=== PATIENT | male | born 1975 | race Caucasian/White ===

== ENCOUNTER 2016-10-18 11:04 | Emergency (ER) | payer SELFPAY ==
[2016-10-18 11:56] VITALS: BP 137/86; PULSE 66; RESP 16; TEMP 97.4
--- NOTE | 2016-10-18 12:14 | ED ---
ENT HPI - General Chief complaint: Dental/Oral Stated complaint: tooth pain Time Seen by Provider: 10/18/16 11:57 Source: patient, RN notes reviewed Mode of arrival: ambulatory Limitations: no limitations - History of Present Illness Initial comments: 40-year-old male presents emergency Department chief complaint dental pain. Patient states that this started last night. Patient's been up all night secondary to pain. Patient denies any fever, chills, facial swelling. Patient states she's has multiple missing teeth, poor dentition. Patient states that he was scheduled have dentures though his Medicaid lapsed. Patient states night was money and states he cannot see the dentist. Patient denies any difficulty swallowing, headache or dizziness. Patient offers no other complaints. - Related Data Home Medications Medication Instructions Recorded Confirmed Vitamin B Complex 1 cap PO DAILY 10/18/16 10/18/16 Previous Rx's Medication Instructions Recorded Hydrocodone/Acetaminophen [[place] 1 tab PO Q6HR PRN #20 tab 10/18/16 5-325] Penicillin V Potassium [Pen Vee K] 500 mg PO QID #40 tab 10/18/16 Allergies Allergy/AdvReac Type Severity Reaction Status Date / Time No Known Allergies Allergy Verified 10/18/16 11:54 Review of Systems ROS Statement: Those systems with pertinent positive or pertinent negative responses have been documented in the HPI. ROS Other: All systems not noted in ROS Statement are negative. 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 History of Any Multi-Drug Resistant Organisms: None Reported Additional Past Surgical History / Comment(s): surgery on left testicle- undescended as . Past Anesthesia/Blood Transfusion Reactions: Unable to Obtain Past Psychological History: Anxiety Additional Psychological History / Comment(s): Pt lives alone. He is independent. He drives. Smoking Status: Current every day smoker Past Alcohol Use History: None Reported Additional Past Alcohol Use History / Comment(s): Pt is a recovering alcoholic. He has not drank in 190 days. He started smoking cigarettes at the age of 18 yrs and was a 2 ppd smoker-now down to 3/4-1 ppd. Past Drug Use History: None Reported Additional Drug Use History / Comment(s): Pt states he smokes marijuana on occasion but not daily. - Past Family History Father Family Medical History: Unable to Obtain Additional Family Medical History / Comment(s): Pt states he has not had contact with his father in a long time but thinks he is healthy. Mother Family Medical History: Unable to Obtain Additional Family Medical History / Comment(s): Mother is an alcoholic and pt has not had contact with her since he was 8 yrs old. General Exam Limitations: no limitations General appearance: alert, in no apparent distress Head exam: Present: atraumatic, normocephalic, normal inspection Eye exam: Present: normal appearance, PERRL, EOMI. Absent: scleral icterus, conjunctival injection, periorbital swelling ENT exam: Present: mucous membranes moist, TM's normal bilaterally, normal external ear exam. Absent: normal oropharynx (Edentulous, no definite abscess no swelling there is mild erythema of the right lower gumline.) Neck exam: Present: normal inspection, full ROM. Absent: tenderness, meningismus, lymphadenopathy Respiratory exam: Present: normal lung sounds bilaterally. Absent: respiratory distress, wheezes, rales, rhonchi, stridor Cardiovascular Exam: Present: regular rate, normal rhythm, normal heart sounds. Absent: systolic murmur, diastolic murmur, rubs, gallop, clicks Neurological exam: Present: alert Skin exam: Present: warm, dry, intact, normal color. Absent: rash Course Vital Signs 10/18/16 11:54 Temperature 97.4 F L Pulse Rate 66 Respiratory 16 Rate Blood Pressure 137/86 O2 Sat by Pulse 99 Oximetry Medical Decision Making - Medical Decision Making 4-year-old male. Presented for dental pain. Patient was started on antibiotics , pain medication there is no drainable abscess. There is concerns for dental infection. Patient will be discharged with follow-up. We did discuss return parameters. Disposition Clinical Impression: Dental infection, Dental caries Disposition: HOME SELF-CARE Condition: Stable Instructions: Toothache (ED) Additional Instructions: Please return to the Emergency Department if symptoms worsen or any other concerns. Prescriptions: Hydrocodone/Acetaminophen [[place] 5-325] 1 tab PO Q6HR PRN #20 tab PRN Reason: Pain Penicillin V Potassium [Pen Vee K] 500 mg PO QID #40 tab Time of Disposition: 12:14
== END 2016-10-18 12:24 | disposition home or self-care (01) ==
LOC: EC 11:04
DX: K02.9 Dental caries, unspecified (principal); K04.7 Periapical abscess without sinus; F12.90 Cannabis use, unspecified, uncomplicated; F17.210 Nicotine dependence, cigarettes, uncomplicated
CPT/HCPCS: 99282

== ENCOUNTER 2017-06-26 10:52 | Emergency (ER) | payer OTHER ==
[2017-06-26 11:00] VITALS: BP 153/65; PULSE 80; RESP 18; TEMP 98
--- NOTE | 2017-06-26 11:20 | ED ---
General Adult HPI - General Chief complaint: Extremity Injury, Upper Stated complaint: L arm swelling Time Seen by Provider: 06/26/17 11:01 Source: patient, RN notes reviewed Mode of arrival: ambulatory Limitations: no limitations - History of Present Illness Initial comments: Patient 41-year-old male who presents emergency room today with chief complaint of swelling and pain locally to the left wrist area over the last 3 days. He denies any injury or trauma. States he is right-handed. States he has noticed some redness. She is warm to the touch. States worse with both flexion and extension at the left wrist. He denies any other complaints or symptoms. Patient denies any recent fever, chills, shortness of breath, chest pain, back pain, abdominal pain, nausea or vomiting, numbness or tingling, dysuria or hematuria, constipation or diarrhea, headaches or visual changes, or any other complaints. - Related Data Home Medications Medication Instructions Recorded Confirmed Ibuprofen [Motrin] 800 mg PO Q6HR PRN 06/26/17 06/26/17 Previous Rx's Medication Instructions Recorded Cephalexin [Keflex] 500 mg PO Q12HR 10 Days 06/26/17 Ibuprofen [Motrin] 800 mg PO Q6HR #20 tab 06/26/17 Allergies Allergy/AdvReac Type Severity Reaction Status Date / Time No Known Allergies Allergy Verified 06/26/17 11:10 Review of Systems ROS Statement: Those systems with pertinent positive or pertinent negative responses have been documented in the HPI. ROS Other: All systems not noted in ROS Statement are negative. 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 History of Any Multi-Drug Resistant Organisms: None Reported Additional Past Surgical History / Comment(s): surgery on left testicle- undescended as infant. Past Anesthesia/Blood Transfusion Reactions: Unable to Obtain Past Psychological History: Anxiety Smoking Status: Current every day smoker Past Alcohol Use History: None Reported Past Drug Use History: Marijuana - Past Family History Father Family Medical History: Unable to Obtain Additional Family Medical History / Comment(s): Pt states he has not had contact with his father in a long time but thinks he is healthy. Mother Family Medical History: Unable to Obtain Additional Family Medical History / Comment(s): Mother is an alcoholic and pt has not had contact with her since he was 8 yrs old. General Exam - General Exam Comments Initial Comments: General: The patient is awake and alert, in no distress, and does not appear acutely ill. Neck: The neck is supple, there is no tenderness or JVD. Cardiovascular: There is a regular rate and rhythm. No murmur, rub or gallop is appreciated. Respiratory: Lungs are clear to auscultation, respirations are non-labored, breath sounds are equal. No wheezes, stridor, rales, or rhonchi. Musculoskeletal/skin: Does have some mild swelling to the left wrist area. There is increased redness to the dorsal aspect. There is increased warmth on palpation. Sensations are intact. Cap refill less than 2 seconds. Shows full range of motion. Strength 5/5. Neurological: A&O x 3. CN II-XII intact, There are no obvious motor or sensory deficits. Coordination appears grossly intact. Speech is normal. Psychiatric: Normal mood and affect. Limitations: no limitations Course Vital Signs 06/26/17 10:58 Temperature 98.0 F Pulse Rate 80 Respiratory 18 Rate Blood Pressure 153/65 O2 Sat by Pulse 98 Oximetry Medical Decision Making - Medical Decision Making Ultrasound negative for any evidence of DVT. Patient will be treated for cellulitis sure on antibiotics here in the emergency room and advised close follow up Dr. fontenot if symptoms increase worsen. States understanding and is in agreement with plan. Disposition Clinical Impression: Cellulitis Disposition: HOME SELF-CARE Condition: Good Instructions: Cellulitis (ED) Additional Instructions: Please use antibiotic as prescribed follow-up family doctor over the next 2 days. Please return here to the emergency room symptoms increase worsen or for any other concerns. Prescriptions: Cephalexin [Keflex] 500 mg PO Q12HR 10 Days Ibuprofen [Motrin] 800 mg PO Q6HR #20 tab Referrals: None,Stated [Primary Care Provider] - 1-2 days Lata Topete MD [STAFF PHYSICIAN] - 1-2 days Time of Disposition: 12:28
--- NOTE | 2017-06-26 12:23 | US ---
EXAMINATION TYPE: US venous doppler duplex UE LT DATE OF EXAM: 06/26/2017 COMPARISON: NONE CLINICAL HISTORY: Pain. SIDE PERFORMED: LEFT Grayscale, color doppler, spectral doppler imaging performed of the deep veins of the left upper extr emity. There is normal flow, compressability and vascular waveforms. Left Arm: Negative for DVT IMPRESSION: No evidence for DVT at this time.
== END 2017-06-26 12:52 | disposition home or self-care (01) ==
LOC: EC 10:52
DX: L03.114 Cellulitis of left upper limb (principal); F17.200 Nicotine dependence, unspecified, uncomplicated
CPT/HCPCS: 99283

== ENCOUNTER 2017-08-25 13:51 | Emergency (ER) | payer SELFPAY ==
[2017-08-25 13:57] VITALS: BP 134/76; PULSE 77; RESP 18; TEMP 98.6
--- NOTE | 2017-08-25 14:41 | ED ---
ENT HPI - General Chief complaint: Dental/Oral Stated complaint: Dental Pain Time Seen by Provider: 08/25/17 14:24 Source: patient Mode of arrival: ambulatory Limitations: no limitations - History of Present Illness Initial comments: Patient is a 41-year-old male presenting to the emergency department with chief complaint of dental pain to tooth #73 days and upper lip swelling 1 day. Patient is currently rating his dental pain 9 out of 10, described as sharp, exacerbated with eating and cold air. Patient states he's been taken Motrin 800 mg with minimal relief. Patient denies recent illness, fevers, chills, nausea, vomiting, shortness of breath, chest pain, or abdominal pain. Patient denies ear fullness or ear pain. Patient denies trismus. Patient states that in 2016 he had to be hospitalized for IV antibiotics and tooth extraction for infected dental abscess. Patient denies antibiotic use last 30 days. - Related Data Previous Rx's Medication Instructions Recorded HYDROcodone/APAP 5-325MG [[place] 1 tab PO Q6HR PRN #12 tab 08/25/17 5-325] Penicillin V Potassium [Pen Vee K] 500 mg PO QID #28 tablet 08/25/17 Allergies Allergy/AdvReac Type Severity Reaction Status Date / Time No Known Allergies Allergy Verified 08/25/17 14:08 Review of Systems ROS Statement: Those systems with pertinent positive or pertinent negative responses have been documented in the HPI. ROS Other: All systems not noted in ROS Statement are negative. 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 History of Any Multi-Drug Resistant Organisms: None Reported Additional Past Surgical History / Comment(s): surgery on left testicle- undescended as infant. Past Anesthesia/Blood Transfusion Reactions: Unable to Obtain Past Psychological History: Anxiety Smoking Status: Current every day smoker Past Alcohol Use History: None Reported Past Drug Use History: Marijuana - Past Family History Father Family Medical History: Unable to Obtain Additional Family Medical History / Comment(s): Pt states he has not had contact with his father in a long time but thinks he is healthy. Mother Family Medical History: Unable to Obtain Additional Family Medical History / Comment(s): Mother is an alcoholic and pt has not had contact with her since he was 8 yrs old. General Exam Limitations: no limitations General appearance: alert, in no apparent distress Head exam: Present: atraumatic, normocephalic, normal inspection Eye exam: Present: normal appearance, PERRL, EOMI. Absent: scleral icterus, conjunctival injection, periorbital swelling, periorbital tenderness ENT exam: Present: mucous membranes moist, TM's normal bilaterally, normal external ear exam Expanded Ear exam: Present: normal external inspection Mouth exam: Present: tongue normal. Absent: drooling, trismus, muffled voice, tongue elevation Teeth exam: Present: dental caries, dental tenderness # (7), other (No obvious abscess noted. Patient has very poor dentition.) Throat exam: normal inspection. negative: tonsillar erythema, tonsillomegaly, tonsillar exudate, R peritonsillar mass, L peritonsillar mass Neck exam: Present: normal inspection, full ROM. Absent: tenderness, meningismus, lymphadenopathy Respiratory exam: Present: normal lung sounds bilaterally. Absent: respiratory distress, wheezes, rales, rhonchi, decreased breath sounds Cardiovascular Exam: Present: regular rate, normal rhythm, normal heart sounds. Absent: systolic murmur GI/Abdominal exam: Present: soft, normal bowel sounds. Absent: distended, tenderness Extremities exam: Present: normal inspection, full ROM, normal capillary refill. Absent: tenderness Back exam: Present: normal inspection Neurological exam: Present: alert, oriented X3, CN II-XII intact, normal gait, other (No focal deficits noted). Absent: motor sensory deficit Psychiatric exam: Present: normal affect, normal mood Skin exam: Present: warm, dry, intact, normal color Course Vital Signs 08/25/17 13:55 Temperature 98.6 F Pulse Rate 77 Respiratory 18 Rate Blood Pressure 134/76 O2 Sat by Pulse 100 Oximetry Medical Decision Making - Medical Decision Making Dental infection to tooth #7 without obvious abscess. Patient placed on penicillin and instructed to follow-up with dental clinic. Patient given handout on free dental clinic and contact number. Patient agrees to treatment plan. Patient instructed to return to the emergency department with any new or worsening symptoms. Discharge instructions and return parameters reviewed. Disposition Clinical Impression: Toothache, Dental infection Disposition: HOME SELF-CARE Condition: Good Instructions: Dental Caries (ED), Toothache (ED) Additional Instructions: Finish antibiotics as prescribed. Continue pain medication every 4-6 hours as needed for pain. Apply warm compresses to face for relief. Please call dental clinic in next 24 hours for appointment. Please return to the emergency department with any new or worsening symptoms. Prescriptions: HYDROcodone/APAP 5-325MG [[place] 5-325] 1 tab PO Q6HR PRN #12 tab PRN Reason: Pain Penicillin V Potassium [Pen Vee K] 500 mg PO QID #28 tablet Referrals: None,Stated [Primary Care Provider] - 1-2 days Time of Disposition: 14:39
== END 2017-08-25 14:45 | disposition home or self-care (01) ==
LOC: EC 13:51
DX: K04.7 Periapical abscess without sinus (principal); K02.9 Dental caries, unspecified; F17.200 Nicotine dependence, unspecified, uncomplicated
CPT/HCPCS: 99282

== ENCOUNTER 2017-08-27 16:14 | Emergency (ER) | payer SELFPAY ==
[2017-08-27 16:18] VITALS: BP 133/77; PULSE 78; RESP 16; TEMP 99.1
--- NOTE | 2017-08-27 16:32 | ED ---
ENT HPI - General Chief complaint: Dental/Oral Stated complaint: Abscess on Tooth Time Seen by Provider: 08/27/17 16:26 Source: patient, RN notes reviewed, old records reviewed Mode of arrival: ambulatory Limitations: no limitations - History of Present Illness Initial comments: 41-year-old male presents for reevaluation for dental pain. Was seen 2 days ago , started on Pen-Vee K. He reports that the swelling is getting worse. His upper dental pain. Patient reports that all this to the [facility]. He does not have a dentist at this time. He reports that he needs to see them to get all of his teeth removed. Patient reports that the pain medicine that was given Prevacid and help. Discussed that he is had a low-grade fever, but denies any fever recently. Denies any trismus, or foul odor drainage in his teeth. Patient states that he has had this history of poor teeth for a long time. - Related Data Previous Rx's Medication Instructions Recorded HYDROcodone/APAP 5-325MG [[place] 1 tab PO Q6HR PRN #12 tab 08/25/17 5-325] Penicillin V Potassium [Pen Vee K] 500 mg PO QID #28 tablet 08/25/17 Clindamycin [Cleocin] 450 mg PO TID 7 Days capsule 08/27/17 HYDROcodone/APAP 5-325MG [[place] 1 tab PO Q6HR PRN #12 tab 08/27/17 5-325] Allergies Allergy/AdvReac Type Severity Reaction Status Date / Time No Known Allergies Allergy Verified 08/27/17 16:18 Review of Systems ROS Statement: Those systems with pertinent positive or pertinent negative responses have been documented in the HPI. ROS Other: All systems not noted in ROS Statement are negative. 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 History of Any Multi-Drug Resistant Organisms: None Reported Additional Past Surgical History / Comment(s): surgery on left testicle- undescended as . Past Anesthesia/Blood Transfusion Reactions: Unable to Obtain Past Psychological History: Anxiety Smoking Status: Current every day smoker Past Alcohol Use History: None Reported Past Drug Use History: Marijuana - Past Family History Father Family Medical History: Unable to Obtain Additional Family Medical History / Comment(s): Pt states he has not had contact with his father in a long time but thinks he is healthy. Mother Family Medical History: Unable to Obtain Additional Family Medical History / Comment(s): Mother is an alcoholic and pt has not had contact with her since he was 8 yrs old. General Exam - General Exam Comments Initial Comments: 41-year-old male. No distress. Limitations: no limitations General appearance: alert, in no apparent distress Head exam: Present: atraumatic, normocephalic, normal inspection Eye exam: Present: normal appearance, PERRL, EOMI. Absent: scleral icterus, conjunctival injection, periorbital swelling ENT exam: Present: mucous membranes moist. Absent: normal exam, normal oropharynx (Patient has patient has extremely poor dentition. Patient has upper lip swelling. Appears to have an infection over the gums near 7, 6, 5, and 8.) Neck exam: Present: normal inspection. Absent: tenderness, meningismus, lymphadenopathy Respiratory exam: Present: normal lung sounds bilaterally Cardiovascular Exam: Present: regular rate, normal rhythm, normal heart sounds. Absent: systolic murmur, diastolic murmur, rubs, gallop, clicks GI/Abdominal exam: Present: soft, normal bowel sounds. Absent: distended, tenderness, guarding, rebound, rigid Extremities exam: Present: normal inspection, full ROM, normal capillary refill. Absent: tenderness, pedal edema, joint swelling, calf tenderness Back exam: Present: normal inspection Neurological exam: Present: alert, oriented X3, CN II-XII intact Psychiatric exam: Present: normal affect, normal mood Skin exam: Present: warm, dry, intact, normal color. Absent: rash Course Vital Signs 08/27/17 16:16 Temperature 99.1 F Pulse Rate 78 Respiratory 16 Rate Blood Pressure 133/77 O2 Sat by Pulse 100 Oximetry Medical Decision Making - Medical Decision Making 41-year-old male with history of poor dentition. Briefly started on Pen-Vee K. He reports that his swelling and pain is getting worse. Patient will be switched to clindamycin. Discussed need to follow-up with a dentist. Given another short course of pain medicine, discuss that he needs to follow-up with primary care provider and dentist as soon as possible. Discussed that patient should return to emergency department if any worsening swelling or alarming signs or symptoms occur. Patient agrees to treatment plan will comply. Return parameters were discussed. Disposition Clinical Impression: Dental abscess Disposition: HOME SELF-CARE Condition: Good Instructions: Dental Abscess (ED) Additional Instructions: [facility] [address] [place] [address] [phone] (existing clients only) For new clients: [phone] 1st consult: $50 (includes Xrays) Usually 30% less then private dentist for visits after. [employer] Have to pay $50 for Xrays anmd rest is covered. [phone] Prescriptions: Clindamycin [Cleocin] 450 mg PO TID 7 Days capsule HYDROcodone/APAP 5-325MG [[place] 5-325] 1 tab PO Q6HR PRN #12 tab PRN Reason: Pain Referrals: None,Stated [Primary Care Provider] - 1-2 days Lata Topete MD [STAFF PHYSICIAN] - 1-2 days Time of Disposition: 16:31
== END 2017-08-27 16:40 | disposition home or self-care (01) ==
LOC: EC 16:14
DX: K04.7 Periapical abscess without sinus (principal); F17.200 Nicotine dependence, unspecified, uncomplicated
CPT/HCPCS: 99283